=== PATIENT | female | born 1990 | race Caucasian/White ===

== ENCOUNTER → 2024-07-08 14:47 | Outpatient (CLI) | payer OTHER, SELFPAY ==
[2024-07-08 15:27] LABS: Appearance Urine UA CLEAR; Bilirubin Urine UA NEGATIVE (NEGATIVE); Color Urine UA YELLOW; Glucose Urine UA NEGATIVE (Negative); Ketones Urine UA NEGATIVE (NEGATIVE); Leukocyte Esterase Urine UA NEGATIVE (NEGATIVE); Nitrite Urine UA NEGATIVE (Negative); Occult Blood Urine UA NEGATIVE (Negative); Protein Urine UA NEGATIVE (Negative); Urobilinogen Urine UA 0.2 E.U./dL (0.2)
[2024-07-08 15:31] LABS: pH Urine UA 6.5 (4.5-8.0)
== END ==
PROVIDERS: Referring Provider Student in an Organized Health Care Education/Training Program; Visit Provider Student in an Organized Health Care Education/Training Program
DX: Z34.80 Encounter for supervision of other normal pregnancy, unspecified trimester (principal)
CPT/HCPCS: 81003; 87086

== ENCOUNTER → 2024-07-12 15:32 | Outpatient (CLI) | payer OTHER, SELFPAY ==
[2024-07-12 16:32] LABS: Add Manual Diff / Slide Review NO; Basophils Absolute Auto 0 /uL (0-100); Basophils Percent Auto 0.3 % (0-2); Eosinophils Absolute Auto 0 /uL (0-450); Eosinophils Percent Auto 0.4 % (2-4); Hematocrit 36.8 % (36-46); Hemoglobin 12.7 g/dL (12.0-16.0); Lymphocytes Absolute Auto 2300 /uL (1100-4500); Lymphocytes Percent Auto 23.4 % (25-40); Mean Corpuscular HGB Conc 34.6 % (30-36); Mean Corpuscular Hemoglobin 30.9 PG (26-34); Mean Corpuscular Volume 89.4 fL (80-100); Monocytes Absolute Auto 700 /uL (0-900); Monocytes Percent Auto 7.5 % (3-14); Neutrophils Absolute Auto 6600 /uL (1500-7000); Neutrophils Percent Auto 68.4 % (50-75); Platelet Count 251 X10^3/uL (150-400); Red Blood Cell Count 4.11 X10^6/uL (4.0-5.2); Red Cell Distribution Width 12.9 % (11.6-14.8); White Blood Cell Count 9.7 X10^3/uL (4.5-11.0)
[2024-07-12 16:45] LABS: Natera Collection Specimen Collected
[2024-07-12 16:51] LABS: Alanine Aminotransferase 12 IU/L (<35); Aspartate Aminotransferase 22 IU/L (14-36); BUN Creatinine Ratio 15.9 (6-22); Blood Urea Nitrogen 10 mg/dL (7-17); Estimated Glomerular Filt Rate > 60 mL/min (>60); Uric Acid 3.2 mg/dL (2.5-6.2)
[2024-07-13 08:36] LABS: Varicella IgG Antibody Reactive (Non Reactive)
[2024-07-13 16:11] LABS: Hepatitis B Surface Antigen NEGATIVE s/c (NEGATIVE); Rubella Antibody IgG 11.5 IU/mL (>15)
[2024-07-13 16:28] LABS: HIV 1 & 2 Ab/Ag 4th Gen Combo NEGATIVE (NEGATIVE); Hep C Virus Ab w/Reflex Quant NEGATIVE s/c (NEGATIVE)
[2024-07-14 04:10] LABS: RPR Screen Non Reactive (Non Reactive)
== END ==
PROVIDERS: Referring Provider Student in an Organized Health Care Education/Training Program; Visit Provider Student in an Organized Health Care Education/Training Program
DX: O09.299 Supervision of pregnancy with other poor reproductive or obstetric history, unspecified trimester (principal); Z3A.10 10 weeks gestation of pregnancy
CPT/HCPCS: 80055; 82565; 84450; 84460; 84520; 84550; 86787; 86803; 86850; 86900; 86901; 87389

== ENCOUNTER → 2024-09-23 13:36 | Outpatient (CLI) | payer OTHER, SELFPAY ==
--- NOTE | 2024-09-23 13:37 | DI.US.S_ITS ---
PROCEDURE: US OB >= 14 WEEKS FETUS INDICATIONS: anatomy scan OUTSIDE/PRIOR DATING DATA: Last menstrual period (LMP): 05/03/24 LMP-based estimated date of delivery (SABINA): 02/07/25. First dating scan (date and location): 07/12/24. Estimated date of delivery (SABINA) from first dating scan: 02/10/25. The calculations are made using the most accurate SABINA from the 1st OB ultrasound. TECHNIQUE: Real-time scanning was performed of the fetus, with image documentation and biometric measurements. Endovaginal scanning: Not needed COMPARISON: None. FINDINGS: General: A single living intrauterine gestation is present. Presentation: Vertex. Placenta: Placental position is anterior , without previa. Amniotic fluid index: 16.0 cm, normal range is 5-24 cm. Single deepest vertical pocket is 6.2 cm. heart rate: 144 beats per minute. Maternal cervical canal: 3.4 cm long. Normal lower limit is 2.5 cm. biometrics: Biparietal diameter: 4.9 cm, 20 weeks 5 days Head circumference: 18.0 cm, 20 weeks 3 days Abdominal circumference: 15.2 cm, 20 weeks 3 days Femur length: 3.4 cm, 20 weeks 4 days Clinically estimated gestational age: 20 weeks 3 days Composite gestational age from present scan: 20 weeks 4 days Estimated weight and percentile: 359 g, 50th percentile Anatomic survey: Neuro: Ventricles are non-dilated at less than 10 mm. Cisterna magna is normal at 3-11 mm. Cerebellum is normal in size and morphology. Nuchal skin fold: Normal at less than 6 mm between 14-21 weeks gestational age. Face: Nose and lips, facial profile are normal. Spine: No evidence for spina bifida. Heart: 4-chambered heart is present, with normal ventricular outflow tracts. Diaphragm: Diaphragm is intact. Stomach: Left-sided stomach is present. Kidneys: No hydronephrosis. Normal is less than 5 mm in 2nd trimester, less than 7 mm in 3rd trimester. Cord: 3-vessel cord has orthotopic insertion. Bladder: Normal in size. Extremities: All 4 extremities identified. IMPRESSION: Single living intrauterine gestation, normal survey of anatomy. Delivery date is projected to be centered on 02/10/25 based on the 1st OB ultrasound. We strive to produce accurate, complete, and clear reports of imaging services. To assist us in improving patient care, this report was composed using standard report templates and voice recognition software. Therefore, it may contain abnormal punctuation, insertions and/or omissions. Occasional wrong-word or sound-alike substitutions may occur. Though we review the report and make efforts to correct it, we do recommend that the report be read carefully in proper context to recognize any text inaccuracies. Dictated by: Ismael Max M.D. on 09/23/2024 at 17:00 Approved by: Ismael Max M.D. on 09/23/2024 at 17:03
== END ==
LOC: US 13:36
PROVIDERS: Referring Provider Student in an Organized Health Care Education/Training Program; Visit Provider Student in an Organized Health Care Education/Training Program
DX: Z34.02 Encounter for supervision of normal first pregnancy, second trimester (principal); Z3A.20 20 weeks gestation of pregnancy
CPT/HCPCS: 76811

== ENCOUNTER → 2024-11-07 15:06 | Outpatient (CLI) | payer OTHER, SELFPAY ==
[2024-11-07 16:48] LABS: Hemoglobin 10.9 g/dL (12.0-16.0)
[2024-11-07 17:34] LABS: GTT (PREG) 1 Hour PP 50gm Dose 117 mg/dL (76-139)
== END ==
PROVIDERS: Referring Provider Student in an Organized Health Care Education/Training Program; Visit Provider Student in an Organized Health Care Education/Training Program
DX: Z13.1 Encounter for screening for diabetes mellitus (principal); Z13.0 Encounter for screening for diseases of the blood and blood-forming organs and certain disorders involving the immune mechanism
CPT/HCPCS: 36415; 82950; 85014; 85018

== ENCOUNTER → 2025-01-02 14:57 | Outpatient (CLI) | payer OTHER, SELFPAY ==
[2025-01-02 15:17] LABS: Add Manual Diff / Slide Review NO; Basophils Absolute Auto 0 /uL (0-100); Basophils Percent Auto 0.3 % (0-2); Eosinophils Absolute Auto 100 /uL (0-450); Eosinophils Percent Auto 0.6 % (2-4); Hemoglobin 11.9 g/dL (12.0-16.0); Lymphocytes Absolute Auto 2900 /uL (1100-4500); Lymphocytes Percent Auto 25.1 % (25-40); Mean Corpuscular Hemoglobin 31.8 PG (26-34); Monocytes Absolute Auto 800 /uL (0-900); Monocytes Percent Auto 7.3 % (3-14); Neutrophils Absolute Auto 7700 /uL (1500-7000); Neutrophils Percent Auto 66.7 % (50-75); Platelet Count 207 X10^3/uL (150-400); Red Blood Cell Count 3.74 X10^6/uL (4.0-5.2); Red Cell Distribution Width 12.7 % (11.6-14.8); White Blood Cell Count 11.5 X10^3/uL (4.5-11.0)
== END ==
PROVIDERS: Referring Provider Student in an Organized Health Care Education/Training Program; Visit Provider Student in an Organized Health Care Education/Training Program
DX: O99.019 Anemia complicating pregnancy, unspecified trimester (principal)
CPT/HCPCS: 36415; 85025

== ENCOUNTER → 2025-01-17 14:23 | Outpatient (CLI) | payer OTHER, SELFPAY ==
[2025-01-18 09:29] LABS: Strep Grp B PCR NEG for Grp B Strep
== END ==
PROVIDERS: Visit Provider Student in an Organized Health Care Education/Training Program
DX: Z36.85 Encounter for antenatal screening for Streptococcus B (principal)
CPT/HCPCS: 87653

== ENCOUNTER 2025-01-31 05:56 | Inpatient (IN) | payer OTHER, SELFPAY ==
[2025-01-31] VITALS (8 sets, daily range): BP systolic 95–119; BP diastolic 39–75; PULSE 74–106; RESP 12–17; TEMP 36.1; O2SAT 99–100
[2025-01-31 06:46] LABS: Add Manual Diff / Slide Review NO; Basophils Absolute Auto 0 /uL (0-100); Basophils Percent Auto 0.4 % (0-2); Eosinophils Absolute Auto 100 /uL (0-450); Eosinophils Percent Auto 0.9 % (2-4); Hematocrit 31.7 % (36-46); Hemoglobin 11.3 g/dL (12.0-16.0); Lymphocytes Absolute Auto 2500 /uL (1100-4500); Lymphocytes Percent Auto 27.6 % (25-40); Mean Corpuscular HGB Conc 35.7 % (30-36); Mean Corpuscular Hemoglobin 31.9 PG (26-34); Mean Corpuscular Volume 89.4 fL (80-100); Monocytes Absolute Auto 600 /uL (0-900); Neutrophils Absolute Auto 5800 /uL (1500-7000); Neutrophils Percent Auto 64.1 % (50-75); Platelet Count 187 X10^3/uL (150-400); Red Blood Cell Count 3.54 X10^6/uL (4.0-5.2); Red Cell Distribution Width 13.1 % (11.6-14.8)
[2025-01-31] MEDS: CITRIC ACID/SODIUM CITRATE 15 ML SOLUTION 30 ML PO (07:32)
--- NOTE | 2025-01-31 07:32 | P.HPOB_ITS ---
OB HPI Date/Time Date of admission: 01/31/25 Date Patient Seen: 01/31/25 Time Patient Seen: 07:25 History of Present Condition Chief complaint: labor SABINA Calculator 2 Estimated Delivery Date Method Current WG Current Estimate 02/07/25 LMP (Certain) 39w 0d Other Estimates 02/10/25 Ultrasound #1 38w 4d : 3 Para: 1 Narrative: 34yo F with history of prior presenting today for planned repeat c- section. care: good care Dating criteria OB: LMP confirmed by 1st trimester US Ultrasounds: normal mid trimester US Narrative: Ultrasound Ultrasound Details:: Dating US 07/12/24: vivas IUP with CRL 2.81cm (9+4wks); +FCA 172 Anatomy US 09/23/24: normal anatomy, anterior placenta, EFW 58%ile Expected Delivery Route/Plan Repeat C/S Specific Issues/Plans [x ] cfDNA- low risk XY; declined carrier screening Anemia (H/H 10.9/32.0)--> PO iron; [ x] repeat CBC 34-36wks- 11.9/34.0<207 Hx of at 41wks (cat II tracing, face presentation)--> [x] op note reviewed; pt unsure if she desires TOLAC; [ x] scheduled repeat for 39wks (01/31/25) Close interval (delivered 08/2023) Hx of pre-e without SF at 41wks--> [x ] baseline labs; [ x] ASA (recommended 08/12) Rubella NI [employer] (admin job, works in secure building; 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) [employer] (also active duty, shore duty currently) Assigned to [employer] Indications Operative indications ( section): previous uterine surgery Preadmission Labs Last OB Lab Results: 2 Blood Type O Positive 07/12/24 15:45 Antibody Screen Negative 07/12/24 15:45 Hct 31.7 % (36-46) L 01/31/25 06:35 Hgb 11.3 g/dL (12.0-16.0) L 01/31/25 06:35 Hep Bs Antigen Negative s/c (NEGATIVE) 07/12/24 15:45 Hepatitis C Antibody Negative s/c (NEGATIVE) 10/22/24 15:45 Rubella Antibody 11.5 IU/mL (>15) L 07/12/24 15:45 VZV IgG Antibody Reactive (Non Reactive) 07/12/24 15:45 Glucose 1 Hr 50 gm 117 mg/dL (76-139) 11/07/24 16:14 Group B Strep (PCR) Neg for grp b strep 01/17/25 14:23 Glucose Tolerance Testin hr (negative) -: Chlamydia screen: negative, Gonorrhea screen: negative and Urine: negative -: PAP smear: Normal Genetic Screens: Cell-free DNA: Normal External Labs -: Urine: negative Prior (ies) Past Pregnancies Del. Date GA/Weeks Labor Lgth Wt Sex Route Outcome Anesthesia Place Delv Breastfeed Preg Comp Name 03/21/12 5-6 elective 08/27/23 42 36 9 lb 0.4 oz Female live - full term spinal [facility] 8-9 months post-dates induction pre-eclampsia other [place] (Meelo) Delivery Date: 03/21/12 Last Updated by: Deya Whaley RN Rx only, no complications Delivery Date: 08/27/23 Last Updated by: Deya Whaley RN excessive water retention starting ~32 weeks Evaluation Evaluation Baseline heart rate: 130 Variability: Moderate (11-25) monitor accelerations: Present Monitor Decelerations: Absent Status: Category l PFSH Surgical History (Updated 07/05/24 @ 11:31 by Deya Whaley RN) H/O tooth extraction Previous section Family History (Updated 07/05/24 @ 11:33 by Deya Whaley RN) Grandmother Lung cancer Heart disease Heart attack Smoker Father Heart attack Aunt Ovarian cancer Brother Alcoholic liver disease Social History marital status: number of children: 1 household members: spouse lives independently: Yes caregiver/support person: Yes housing: house pets and animals: No education level: college (bachelor's degree) occupational status: employed ([employer]) 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 needs: No travel history: recent ([place], [place]) seatbelt use: always helmet use: Yes water heater temp set < 120 deg: Yes working smoke detector in home: Yes fire extinguisher in home: Yes carbon monox detector in home: Yes firearms in home: Yes firearms unloaded and locked: Yes do you feel safe at home: Yes Smoking Status: Never smoker second hand exposure: No alcohol intake: former (occasionally when not ) substance use type: does not use during the past year weight has: other (back to pre- wt (daughter is 10 months old)) well-balanced diet: daily or most days daily servings fruits/ve-4 caffeine: Yes (single K-cup coffee in AM) Type(s) of exercise: walking frequency: 3-4 times per week Meds Home Medications and Allergies Home Medications Medication Instructions Recorded Confirmed Type vitamin-ferrous sulfate 1 tab PO DAILY 07/05/24 01/31/25 History 27 mg iron-folic acid 0.8 mg tablet Allergies Allergy/AdvReac Type Severity Reaction Status Date / Time No Known Drug Allergies Allergy Unverified 01/26/25 14:48 Review of Systems Review of Systems ROS: Yes All systems reviewed with the patient and are negative except as otherwise documented OB Exam Vital signs Blood Pressure: 107/75 Pulse Rate: 106 HENMT Head: normal to inspection and normocephalic Eyes General: appearance normal, both eyes and all related structures Resp Effort & Inspection: normal respiratory effort and able to speak in complete sentences Extremities Lower extremity: Yes normal to inspection GI Inspection: normal to inspection Other: gravid, nontender, nondistended Objective Labs 01/31/25 06:35 Labs: Laboratory Results - last 24 hr 01/31/25 06:35 WBC 9.0 RBC 3.54 L Hgb 11.3 L Hct 31.7 L MCV 89.4 MCH 31.9 MCHC 35.7 RDW 13.1 Plt Count 187 Neut % (Auto) 64.1 Lymph % (Auto) 27.6 [place] % (Auto) 7.0 Eos % (Auto) 0.9 L Baso % (Auto) 0.4 Neut # (Auto) 5800 Lymph # (Auto) 2500 [place] # (Auto) 600 Eos # (Auto) 100 Baso # (Auto) 0 Assessment and Plan Assessment and Plan Assessment and Plan narrative: 34yo at 39+0wks admitted for planned repeat . -CBC, T&S on admission -NST on admission -plan neuraxial anesthesia -GBS neg; plan 2g Ancef for ppx -PPH risk low -VTE risk low, SCDs for ppx -proceed to OR for delivery once all teams ready counseling: It was explained to the patient that a section is a surgery to deliver the baby through an incision in the abdominal wall and uterus.? All procedures can be associated with risk and unforeseen complications, which can be immediate or delayed.? Risks and complications of section include, but are not limited to:? infection of the uterus, pelvic organs, or skin; inadvertent injury to internal organs such as the bowel, bladder, or possibly even the baby; blood loss, transfusion, and/or life-threatening hemorrhage requiring hysterectomy; blood clots in the legs, pelvic organs, or lungs; adverse reaction to medications or anesthesia during surgery; development of placenta accreta spectrum in a subsequent ; and increased risk of section in a subsequent . Time-Based Coding :: [30min] spent with patient and on the chart (including review of chart, obtaining history, exam, reviewing outside data, placing orders, documenting exam and treatment plan, and counseling patient) on [01/31/25].
[2025-01-31] MEDS: LACTATED RINGERS 1,000 ML 999 ML IV ×2 (07:45→09:41)
[2025-01-31] MEDS: CEFAZOLIN 2 GM/100 ML PREMIX 100 ML IV (08:12)
--- NOTE | 2025-01-31 08:16 | SUR.OPER ---
Supine on Padded OR bed, head on pillow, safety belt at thigh, arms secured on padded arm boards at <90 degrees abduction. Bump under right buttock. Legs uncrossed with pillow under knees, gel pad to heels, tape over blanket to lower legs.
--- NOTE | 2025-01-31 08:31 | SUR.OPER ---
Viable baby boy born at 0831 on 01/[birth year]25.
--- NOTE | 2025-01-31 09:15 | PM.OBCS.1 ---
Operative Date/Time/Diagnoses Date of procedure: 01/31/25 Time of procedure: 08:00 Pre-op diagnosis: 1. Ott intrauterine gestation at 39+0 weeks 2. History of prior section Post-op diagnosis: same Procedure & Clinicians Procedure: Repeat low transverse section Scar revision Same procedure as scheduled: Yes Indications: 34yo at 39+0wks admitted for planned repeat . Surgeon: Jes Headley Avionics Engineer: Hamida Rene Reason for Avionics Engineer: Avionics Engineer was necessary for timely, efficient, and safe completion of the procedure. Anesthesia Type: Spinal Operative Notes Findings: Normal-appearing uterus and bilateral fallopian tubes and ovaries. Clear fluid noted with AROM. Delivery productive of a viable male in cephalic presentation with APGARs 8/8 and weighing 3866g. Intraoperative meds administered: Duramorph and Pitocin Applied: Catheter Estimated Blood Loss (mL): 700 Blood products transfused: none Procedure in detail: The risks, benefits, indications and alternatives of the procedure were reviewed with the patient and informed consent was obtained. The patient was taken to the operating room where spinal anesthesia was obtained without difficulty and was found to be adequate. Sequential compression devices were placed bilaterally for VTE prophylaxis. She was then prepped and draped in the normal, sterile fashion in the dorsal supine position with a leftward tilt. She received 2g Ancef for surgical prophylaxis. A Pfannenstiel skin incision was then made with the scalpel, and the keloid scar was sharply excised in an elliptical fashion. The incision was then carried through to the underlying layer of fascia. The fascia was incised in the midline and the incision extended laterally with the Cordoba scissors. The inferior aspect of the fascial incision was grasped with Soledad clamps, elevated, and the underlying rectus muscles were dissected off bluntly, aided with Cordoba scissors. Attention was then turned to the superior aspect of the incision, which, in a similar fashion, was grasped, tented up with Soledad clamps and the rectus muscles were dissected off bluntly, aided with Cordoba scissors. The rectus muscles were then at the midline. The peritoneum was identified, and entered digitally. The peritoneal incision was then extended horizontally, superiorly and inferiorly, with good visualization of the bladder. The bladder blade was then inserted. The lower uterine segment was incised in a transverse fashion with the scalpel. The uterine incision was then extended manually in a cephalad/caudad direction. The amniotic sac was artificially ruptured, productive of clear fluid. The bladder blade was then removed. The ?s head delivered atraumatically through the hysterotomy without difficulty, followed by the body.? The cord was doubly clamped and cut after a 60sec delay with the handed off to the waiting pediatrics team. The placenta was then removed spontaneously with gentle traction on the umbilical cord. The uterus was then exteriorized and cleared of all clots and debris. The uterine incision was repaired with 0-vicryl in a running, locked fashion. A second running 0-monocryl was then used to imbricate the right side of the hysterotomy with excellent hemostasis achieved. The posterior cul-de-sac was then suctioned.? The uterus was returned to the abdomen and the hysterotomy was again noted to be hemostatic. The paracolic gutters were cleared of all clot and debris. The fascia was reapproximated with 0-vicryl in a running fashion. The subcutaneous layer was closed with 3-0 vicryl in simple, interrupted sutures. The skin was closed with 4-0 monocryl in a subcuticular fashion. The incision was then dressed with steri-strips and a pressure dressing was applied. At the completion of the case, a Crede maneuver was performed with good uterine tone and minimal vaginal bleeding noted.? The patient tolerated the procedure well. Sponge, lap and needle counts were correct x3. The patient was taken to the recovery room in stable condition. Complications: none Baby 1: Delivery Date: 01/31/25 Delivery Time: : Gender: Male Presentation: vertex Post-operative Condition: stable Disposition: PACU Aftercare: routine postop
[2025-01-31] MEDS: ACETAMINOPHEN IV 1,000 MG/100 ML VIAL 400 MG IV (09:39)
--- NOTE | 2025-01-31 09:54 | SUR.PHASEI ---
Tasha and Cyn from OB present during phase I. Report given, condition stable. Patient transferred to the [facility] by OB RNs.
[2025-01-31] MEDS: ONDANSETRON 4 MG/2 ML INJ IV ×2 (10:36→18:33)
[2025-01-31] MEDS: METOCLOPRAMIDE 10 MG/2 ML INJ IV (10:38)
[2025-01-31] MEDS: LACTATED RINGERS 1,000 ML 100 ML IV (10:50)
[2025-01-31] MEDS: KETOROLAC 30 MG/ML VIAL IV ×2 (14:29→20:58)
[2025-01-31] MEDS: ACETAMINOPHEN 325 MG TABLET 650 MG PO ×2 (15:33→20:58)
[2025-02-01] MEDS: ACETAMINOPHEN 325 MG TABLET 650 MG PO ×2 (04:50→11:00)
[2025-02-01] MEDS: KETOROLAC 30 MG/ML VIAL IV (04:57)
[2025-02-01 06:41] LABS: Add Manual Diff / Slide Review NO; Basophils Absolute Auto 0 /uL (0-100); Basophils Percent Auto 0.2 % (0-2); Eosinophils Absolute Auto 0 /uL (0-450); Eosinophils Percent Auto 0.1 % (2-4); Hematocrit 31.1 % (36-46); Hemoglobin 10.8 g/dL (12.0-16.0); Lymphocytes Absolute Auto 2800 /uL (1100-4500); Lymphocytes Percent Auto 19.3 % (25-40); Mean Corpuscular HGB Conc 34.8 % (30-36); Mean Corpuscular Hemoglobin 31.5 PG (26-34); Mean Corpuscular Volume 90.7 fL (80-100); Monocytes Absolute Auto 900 /uL (0-900); Monocytes Percent Auto 6.1 % (3-14); Neutrophils Absolute Auto 10900 /uL (1500-7000); Neutrophils Percent Auto 74.3 % (50-75); Platelet Count 192 X10^3/uL (150-400); Red Blood Cell Count 3.43 X10^6/uL (4.0-5.2); Red Cell Distribution Width 13.2 % (11.6-14.8); White Blood Cell Count 14.6 X10^3/uL (4.5-11.0)
--- NOTE | 2025-02-01 07:55 | P.DS_ITS ---
Discharge Providers Provider Date of admission: 01/31/25 05:56 Discharge Date: 02/01/25 Primary care physician: Morena Hernandez MD Consults: 01/31/25 09:55 Consult to Office Machine Servicer Routine Comment: Discharge provider: Hamida Rene MD Summary Hospital Course Date Patient Seen: 02/01/25 Time Patient Seen: 07:30 Diagnoses: POD1 s/p RCS Hospital Course: 34yo admitted to facility at 39w0d for scheduled repeat section. course notable for maternal anemia adequately controlled with PO iron supplementation. Patient underwent procedure without complication, delivery of vigorous LBMI, QBL 350cc. Patient had an uncomplicated hospital course with early return of bowel function, voiding and ambulating independently, pain well controlled with minimal PO anlagesia. exclusively. Declines contraception. Pt discharged to home on POD1 per request meeting all discharge milestones. Routine f/u in office 1wk incision check with Dr. Headley. Peripartum Data Infant Delivery Method: Section Laceration Description: None Episiotomy description: None Procedures: repeat low transverse section complications: none 1: Gender: Male Disposition of : home Discharge Diagnosis (1) Encounter for maternal care for scar from repeat delivery: Status: Acute Status at Discharge Cognitive/behavioral status at discharge: oriented Functional status at discharge: independent ambulation Overall status at discharge: patient is back to baseline Time Spent with Patient Time attestation: Total time spent providing and/or coordinating discharge services: Objective Labs 02/01/25 06:29 Labs: Laboratory Results - last 24 hr 01/31/25 02/01/25 06:35 06:29 WBC 14.6 H D RBC 3.43 L Hgb 10.8 L Hct 31.1 L MCV 90.7 MCH 31.5 MCHC 34.8 RDW 13.2 Plt Count 192 Neut % (Auto) 74.3 Lymph % (Auto) 19.3 L [place] % (Auto) 6.1 Eos % (Auto) 0.1 L Baso % (Auto) 0.2 Neut # (Auto) 20080 H Lymph # (Auto) 2800 [place] # (Auto) 900 Eos # (Auto) 0 Baso # (Auto) 0 Blood Type O Positive Antibody Screen Negative Exam Vital Signs (past 8 hours): Oxygen Delivery Method Room Air maternal VS reviewed in OBIX and wnl Const General: cooperative, healthy appearing and comfortable Nutritional Appearance: average body habitus Orientation: alert, awake and oriented x3 Limitations: mental status not altered Resp Effort & Inspection: normal respiratory effort and able to speak in complete sentences Cardio Pulses: normal peripheral pulses GI Inspection: normal to inspection Palpation: soft Other: pressure dressing removed, pfannensteil incision c/d/i with steris in place, scant old sang drainage noted Other: deferred, pt states minimal lochia Skin General: no rashes or lesions noted Neuro General: patient alert, patient awake and patient oriented x3 Extrem General: normal to inspection Psych Mental Status: mental status grossly normal Judgment: judgment good Discharge Plan Discharge Plan Patient Disposition: Home Provider Discharge Comment: No heavy lifting over 15lbs (baby + carrier). Keep the incision clean and dry. Take ibuprofen and tylenol as scheduled, using oxycodone for break through pain. If taking narcotic pain medication take the stool softener to prevent constipation. Discharge orders & Medications Prescriptions: New acetaminophen 325 mg Tablet 650 mg PO Q6H Qty: 30 0RF ibuprofen 600 mg Tablet 600 mg PO Q6H Qty: 30 0RF sennosides [senna] 8.6 mg tablet 8.6 mg PO BID PRN (Reason: constipation) Qty: 30 0RF Continued vit-ferrous sulfat-FA 27 mg iron- 0.8 mg tablet 1 tab PO DAILY No Action oxycodone 5 mg tablet 5 mg PO Q6H PRN (Reason: Pain) Qty: 12 0RF Follow up/Referrals: Morena Hernandez MD [Primary Care Provider] - Jes Headley DO [Physician] - 1 Week (Dr. Headley, February 07, 2025 @ 10am incision check, please arrive 15 minutes prior to your scheduled appointment time. Dr. Headley, March 14, 2025 @ 10am 6 week visit, please arrive 15 minutes prior to your scheduled appointment time.) Diet/Activity/Treatments Diet: Diet as Tolerated and Regular Skin/Wound/Dressing Care Report to your healthcare provider any signs of infection, such as:: chills, fever, increased pain, unusual drainage and unusual redness Dressing: steris Visit Report/Discharge Packet Instructions: DI for Hemorrhage, DI for Depression Stand Alone Forms: Discharge: Care, Patient Portal/API, Stroke Signs & Symptoms Discharge Data Primary Care Provider: Morena Hernandez
[2025-02-01] MEDS: DOCUSATE 100 MG CAPSULE PO (09:34)
[2025-02-01] MEDS: IBUPROFEN 600 MG TABLET PO (11:00)
[2025-02-01 15:03] VITALS: BP 105/65; PULSE 89; RESP 16; TEMP 36.8
== END 2025-02-01 14:48 | disposition home or self-care (01) | DRG 788 ==
PROVIDERS: Admitting Provider Student in an Organized Health Care Education/Training Program; Referring Provider Student in an Organized Health Care Education/Training Program; Visit Provider Student in an Organized Health Care Education/Training Program
PROC: 10907ZC Drainage of Amniotic Fluid, Therapeutic from Products of Conception, Via Natural or Artificial Opening (ICD-10-PCS; CPT 59514; principal; 2025-01-31 07:45)
DX: O34.211 Maternal care for low transverse scar from previous cesarean delivery (principal); Z3A.39 39 weeks gestation of pregnancy; Z37.0 Single live birth
CPT/HCPCS: 36415; 59050; 85025; 86850; 86900; 86901; G0379; J0131; J0690; J1100; J1885; J2274; J2405; J2590; J2765